=== PATIENT | female | born 1990 | race African-American/Black ===

== ENCOUNTER 2020-11-11 18:48 | Emergency (ER) | payer OTHER ==
[2020-11-11 19:13] VITALS: BP 122/66; PULSE 62; TEMP 98.1; BMI 26.5
== END 2020-11-11 21:01 | disposition home or self-care (01) ==
LOC: JER 18:48 → JERFT 18:48
DX: T65.94XA Toxic effect of unspecified substance, undetermined, initial encounter (principal)
CPT/HCPCS: 99283-25

== ENCOUNTER 2021-09-08 12:45 | Emergency (ER) | payer OTHER ==
[2021-09-08 13:02] VITALS: BMI 26.9
[2021-09-08] MEDS ORDERED: ACETAMINOPHEN 325 MG TABLET (FP) PO ONE (13:03)
[2021-09-08] MEDS ORDERED: LACTATED RINGERS SOLUTION 1000 ML INFUS.BAG IV ONE (13:13)
[2021-09-08] MEDS ORDERED: ACETAMINOPHEN INJECTION 100 ML IVPB ONE (13:56)
[2021-09-08 14:11] LABS: BASO % 0.3 % (0-2.0); EOS % 0.6 % (0-4.5); HEMATOCRIT 37.2 % (32.4-45.2); HEMOGLOBIN 11.7 GM/dL (10.7-15.3); LYMPH % 4.2 % (8-40); MCH 22.3 pg (25.7-33.7); MCHC 31.5 g/dl (32.0-36.0); MEAN CELL VOLUME 70.8 fl (80-96); MEAN PLT VOLUME 9.7 fl (7.5-11.1); MONO % 17.1 % (3.8-10.2); NEUT % 77.8 % (42.8-82.8); PLATELET COUNT 223 10^3/uL (134-434); RBC 5.26 M/mm3 (3.60-5.2); RDW 15.7 % (11.6-15.6); WHITE BLOOD COUNT 7.5 K/mm3 (4.0-10.0)
[2021-09-08 14:27] LABS: EPI CELLS 25 /uL (0-25.1); HYALINE CASTS 1 /uL (0-3.1); PH,URINE 7.5 (5.0-8.0); URINE APPEARANCE CLEAR; URINE BACTERIA 334 /uL (0-1359); URINE BILIRUBIN NEGATIVE (NEGATIVE); URINE COLOR YELLOW; URINE GLUCOSE (UA) NEGATIVE (NEGATIVE); URINE KETONE TRACE (NEGATIVE); URINE LEUK ESTERASE TRACE (NEGATIVE); URINE NITRITE NEGATIVE (NEGATIVE); URINE PROTEIN NEGATIVE (NEGATIVE); URINE RBC 8 /uL (0-23.9); URINE UROBILINOGEN 0.2 mg/dL (0.2-1.0); URINE WBC 16 /uL (0-25.8)
[2021-09-08 14:38] LABS: ALBUMIN 3.8 g/dl (3.4-5.0); BLOOD UREA NITROGEN 12.1 mg/dL (7-18)
[2021-09-08 14:42] LABS: CREATININE 0.7 mg/dL (0.55-1.3)
[2021-09-08 14:43] LABS: BILIRUBIN,TOTAL 0.9 mg/dL (0.2-1); TOT PROT 7.8 g/dl (6.4-8.2)
[2021-09-08 14:54] LABS: ANISOCYTOSIS 2+; MACROCYTOSIS 0; OVALOCYTE 3+; TEAR DROP CELLS 1+
[2021-09-08 17:24] VITALS: BP 100/65; PULSE 91; TEMP 99.7
[2021-09-08] MEDS ORDERED: IBUPROFEN 600 MG TABLET (FP) PO ONE ×2 (18:06→18:09)
== END 2021-09-08 18:31 | disposition home or self-care (01) ==
LOC: JER 12:45
DX: R53.83 Other fatigue (principal); M79.10 Myalgia, unspecified site; J47.9 Bronchiectasis, uncomplicated; B34.9 Viral infection, unspecified
CPT/HCPCS: 0241U-QW; 36415; 71046-TC-FY; 71250-TC; 80053; 81003; 84703; 85025; 87086; 93005; 93010; 99285-25

== ENCOUNTER 2022-08-30 21:31 | Emergency (ER) | payer OTHER ==
[2022-08-30 21:49] VITALS: BP 111/66; PULSE 77; RESP 18; TEMP 99; BMI 28.5
[2022-08-30] MEDS ORDERED: FLUCONAZOLE 50 MG TABLET PO ONE (22:26)
== END 2022-08-30 22:48 | disposition home or self-care (01) ==
LOC: JERFT 21:31
DX: R05.9 Cough, unspecified (principal); R09.81 Nasal congestion; J98.8 Other specified respiratory disorders; Z20.822 Contact with and (suspected) exposure to COVID-19
CPT/HCPCS: 0241U-QW; 99283-25